=== PATIENT | male | born 1985 | race Caucasian/White ===

== ENCOUNTER 2017-06-12 07:30 | Day surgery (SDC) | payer OTHER, BC ==
[2017-06-12] MEDS: BUPIVACAINE 0.25%/EPI (SDV) 30 ML INJ INJ
[~2017-06-12 07:30] MED LIST: CEFAZOLIN 2 GM/50 ML (PMX) 50 ML IVPB; SOD CHLORIDE 0.9% 1,000 ML IV
[2017-06-12] MEDS ORDERED: FENTAnyl 50 MCG/ML VIAL IV ×3 (09:00)
[2017-06-12] MEDS ORDERED: DIPHENHYDRAMINE 50 MG INJ IV (09:00)
[2017-06-12] MEDS ORDERED: MEPERIDINE 25 MG INJ IV (09:00)
[2017-06-12] MEDS ORDERED: HYDROmorphONE (0.2 MG/ML) 10ML SYG IV ×2 (09:00)
[2017-06-12] MEDS ORDERED: OXYCODONE/ACETAMINOPHEN (5/325) TAB PO (09:00)
[2017-06-12] MEDS ORDERED: PROCHLORPERAZINE 10 MG INJ IV (09:00)
[2017-06-12] MEDS ORDERED: FENTAnyl 50 MCG/ML VIAL (09:26)
[2017-06-12] MEDS ORDERED: CEFAZOLIN 1 GM INJ (09:26)
[2017-06-12] MEDS ORDERED: LIDOCAINE 2% (SDV) 5 ML INJ (09:26)
[2017-06-12] MEDS ORDERED: MIDAZOLAM 1 MG/ML 2 ML INJ (09:26)
[2017-06-12] MEDS ORDERED: PROPOFOL 20 ML (09:26)
[2017-06-12] MEDS ORDERED: DEXAMETHASONE 4 MG/ML 1 ML INJ (09:27)
[2017-06-12] MEDS ORDERED: ONDANSETRON 4 MG INJ (09:27)
[2017-06-12] MEDS ORDERED: FAMOTIDINE 20 MG INJ (09:27)
[2017-06-12] MEDS ORDERED: EPHEDrine SULFATE 50 MG/5 ML SYG (09:28)
[2017-06-12] MEDS: HYDROmorphONE (0.2 MG/ML) 10ML SYG IV ×3 (10:13→10:38)
[2017-06-12] MEDS: ONDANSETRON 4 MG INJ IV (10:14)
== END 2017-06-12 11:30 | disposition home or self-care (01) ==
LOC: SDS 07:30
DX: D17.22 Benign lipomatous neoplasm of skin and subcutaneous tissue of left arm (principal)
CPT/HCPCS: 11406; 88307